=== PATIENT | male | born 1975 | race Caucasian/White ===

== ENCOUNTER 2024-06-16 02:16 | Day surgery (SDC) | payer OTHER, SELFPAY ==
[2024-06-05 15:40] VITALS: BMI 22.2
--- OUTSIDE RECORDS SUMMARY | 2024-06-16 02:19 | XMS_ITS | Clinical Summary ---
Author Organization [facility] Address [address] [place] [address] Care Team Providers Care Neon Light Installer Name Role Phone Unavailable Primary Care Provider Unavailabl e Source Comments [facility],non-owned Affiliates and Associated Physician Practices is amultiple site organization consisting of ambulatory clinics and hospital sitesin [place], [place], [place] and [place]. This disclosure is being madepursuant to the Care Everywhere program and may not contain all information available regarding this patient. Last updated [facility] [employer] [facility] Social History Tobacco Use Types Packs/Day Years Used Date Smoking Tobacco: Never Assessed Sex and Gender Information Value Date Recorded Sex Assigned at Not on file Gender Identity Not on file Sexual Orientation Not on file Plan of Treatment Health Maintenance Due Date Last Done Comments COLOGUARD (AGES 45-75) - COL ON CA SCREENING 1975 COLON MONITORING 1975 COLONOSCOPY - COLON CA SCREENING 1975 CT COLONOGRAPHY - COLON CA SCREENING 1975 Colorectal Cancer Screening 1975 FIT - COLON CA SCREENING 1975 FLEX SIG - COLON CA SCREENING 1975 LIPID TESTING 1975 HIV SCREENING 11/03/1990 HEPATITIS C SCREENING 10/30/1993 DTAP/TDAP/TD VACCINES (1 - Tdap) 11/03/1994 HEPATITIS B VACCINE (1 of 3 - 19+ 3-dose series) 11/03/1994 COVID-19 VACCINE ( - 2023-2 5 season) 2023 INFLUENZA VACCINE (#1) 2023 DEPRESSION SCREENING 03/18/2024 ZOSTER VACCINE (1 of 2) 11/03/2025 HIB VACCINE Aged Out No longer eligi ble based on patient's age to complete this topic HPV VACCINE Aged Out No longer eligi ble based on patient's age to complete this topic MENINGOCOCCAL (Group B) VACC INE SHARED DECISION-MAKING Aged Out No longer eligibl e based on patient's age to complete this topic MENINGOCOCCAL GROUPS A/C/Y/W VACCINE Aged Out No longer eligible b ased on patient's age to complete this topic PNEUMOCOCCAL VACCINE Aged Out No long er eligible based on patient's age to complete this topic
--- OUTSIDE RECORDS SUMMARY | 2024-06-16 02:19 | XMS_ITS | Clinical Summary ---
Author Organization [facility] [address] Address [address] [place] [address] Care Team Providers Care Wiping Cloth Cutter Name Role Phone Jovanni Engle MD Primary Care Provider [phone] Allergies No known active allergies Medications No known medications Active Problems Problem Noted Date Diagnosed Date Annual physical exam 04/11/2020 Encounters Date Type Department Care Team Description 04/28/2024 1:45 PM MILL WORKER Office Visit [facility] Medical [facility] Family Medicine at [address] [place] [phone] Jovanni Engle MD Annual physical exam (Primary Dx); Colon cancer screening; Odynophagia 03/19/2024 Telephone [facility] Family Medicine at [address] [phone] Jovanni Engle MD Additional Services Or Orders from Last 3 Months Immunizations Immunization Administration Dates Next Due Influenza, Quadrivalent, Robyn l Culture-based MDCK, Preservative Free, Antibiotic Free, Intramuscular 01/09/2019 Influenza, Quadrivalent, Spl it, Preservative Free, Intramuscular 01/14/2018 Influenza, Trivalent, IM (MDV) 01/06/2014 Influenza, Unspecified 12/17/2023,2022,01/04/2022,01/04,12/31/2019 Medical History Medical History Date Comments GERD (gastroesophageal reflux disease) Family History Medical History Relation Name Comments Hearing loss Father Hypertension Father Hearing loss Mother Cancer Other Diabetes Other Heart disease Other Stroke Other Relation Name Status Comments Father Mother Other Social History Tobacco Use Types Packs/Day Years Used Date Smoking Tobacco: Never Smokeless Tobacco: Never Tobacco Cessation:Counseling Given: Not Answered Alcohol Use Standard Drinks/Week Comments Never 0 (1 standard drink = 0.6 oz pur e alcohol) AUDIT-C Answer Date Recorded Frequency of Alcohol Consumption Not on file 04/17/2023 Q2: How many drinks containi ng alcohol do you have on a typical day when you are drinking? Patient does not drink Q3: How often do you have si x or more drinks on one occasion? Never 04/17/2023 PHQ-2 Answer Date Recorded PHQ-2 Total Score (If total score is 3 or more points, staff should administer the PHQ-9) 0 04/28/2024 Sex and Gender Information Value Date Recorded Sex Assigned at Not on file Legal Sex Male 8:54 PM MILL WORKER Gender Identity Not on file Sexual Orientation Not on file Obstetrics History Last Filed Vital Signs Vital Sign Reading Time Taken Comments Blood Pressure 136/82 04/28/2024 1:52 PM MILL WORKER Pulse 61 04/28/2024 1:52 PM MILL WORKER Temperature 36.6 C (97.8 F) 04/28/2024 1:52 PM MILL WORKER Respiratory Rate 18 04/17/2023 2:51 PM MILL WORKER Oxygen Saturation 96% 04/28/2024 1:52 PM MILL WORKER Inhaled Oxygen Concentration - - Weight 70.7 kg (155 lb 14.4 oz) 04/28/2024 1:52 PM MILL WORKER Height 177.8 cm (5' 10 ) 04/28/2024 1:52 PM MILL WORKER Body Mass Index 22.37 04/28/2024 1:52 PM MILL WORKER Plan of Treatment Health Maintenance Due Date Last Done Comments Colon Cancer Screening-Colonoscopy 1975 Hepatitis C Screening 1975 DTaP/Tdap/Td Vaccine (1 - Tdap) 11/03/1986 Hepatitis B Screening 11/03/1993 Covid-19 Vaccine ( season) 2023 11/26/2020, 11/05/2020 Depression Screening 04/28/2025 04/28/2024, 05/10/2022, 04/27/2021, Additional history exists Regular Well Visit/Exam 18-64 04/28/2025 04/28/2024, 04/17/2023, 05/10/2022, Additional history exists Influenza Vaccine Completed 12/17/2023, , 01/14/2022, Additional history exists Pneumococcal vaccine <65 Aged Out No longer eligible based on patient's age to complete this topic Procedures Procedure Name Priority Date/Time Associated Diagnosis Comments PSA SCREEN Routine 04/18/2024 11:26 AM MILL WORKER Annual physical exam Encounter for screening prostate specific antigen (PSA) measurement LIPID PANEL Routine 04/18/2024 11:26 AM MILL WORKER Annual physical exam Hyperlipidemia, unspecified hyperlipidemia type CBC WITH AUTO DIFFERENTIAL Routine 04/18/2024 11:26 AM MILL WORKER Annual physical exam COMPREHENSIVE METABOLIC PANEL Routine 04/18/2024 11:26 AM MILL WORKER Annual physical exam from Last 3 Months Results * PSA screen (04/18/2024 11:26 AM MILL WORKER) PSA 0.72 < OR = 4.00 ng/mL [facility] Comment: The total PSA value from this assay system is standardized against the WHO standard. The test result will be approximately 20% lower when compared to the equimolar-standardized total PSA (Art [place]). Comparison of serial PSA results should be interpreted with this fact in mind. This test was performed using the Siemens chemiluminescent method. Values obtained from different assay methods cannot be used interchangeably. PSA levels, regardless of value, should not be interpreted as absolute evidence of the presence or absence of disease. Blood 04/18/2024 11:2 6 AM MILL WORKER 04/18/2024 11:26 AM MILL WORKER us Jovanni Engle MD LAB BLOOD ORDERABLES Final Re sult [facility] [address] [place] [address] * CBC with auto differential (04/18/2024 11:26 AM MILL WORKER) WBC 6.1 3.8 - 10.8 Thousand/u L [facility] RBC, POC 4.77 4.20 - 5.80 Million/uL [facility] Hgb 15.3 13.2 - 17.1 g/dL [facility] Hct 44.6 38.5 - 50.0 % [facility] MCV 93.5 80.0 - 100.0 fL [facility] MCH 32.1 27.0 - 33.0 pg [facility] MCHC 34.3 32.0 - 36.0 g/dL [facility] Comment: For adults, a slight decrease in the calculated MCHC value (in the range of 30 to 32 g/dL) is most likely not clinically significant; however, it should be interpreted with caution in correlation with other red cell parameters and the patient's clinical condition. Rdw 12.2 11.0 - 15.0 % [facility] Platelets 300 140 - 400 Thousand/u L [facility] MPV 10.6 7.5 - 12.5 fL [facility] Neutrophils, abs 2,830 1,500 - 7,800 cells/uL [facility] Lymphocytes, abs 2,538 850 - 3,900 cells/uL [facility] Monocyte abs 512 200 - 950 cells/uL [facility] Eosinophils, abs 171 15 - 500 cells/uL [facility] Basophils, abs 49 0 - 200 cells/uL [facility] Neutrophils 46.4 % [facility] Lymphocyte pct 41.6 % [facility] Monocytes 8.4 % [facility] Eosinophils 2.8 % [facility] Basophils 0.8 % [facility] Blood 04/18/2024 11:2 6 AM MILL WORKER 04/18/2024 11:26 AM MILL WORKER Jovanni Engle MD LAB BLOOD ORDERABLES Final Re sult [facility] [address] [phone] * (ABNORMAL) Lipid panel (04/18/2024 11:26 AM MILL WORKER) Cholesterol 186 <200 mg/dL [facility] HDL 58 > OR = 40 mg/dL [facility] Triglycerides 82 <150 mg/dL [facility] LDL 111(H) mg/dL (calc) [facility] Comment: Reference range: <100 Desirable range <100 mg/dL for primary prevention; <70 mg/dL for patients with CHD or diabetic patients with > or = 2 CHD risk factors. LDL-C is now calculated using the [place] calculation, which is a validated novel method providing better accuracy than the Friedewald equation in the estimation of LDL-C. Jarred SS et al. JESSY. 2013;310(19): 0971-6721 (http://education.ICU Metrix/faq/VFY543) Chol/HDL ratio 3.2 <5.0 (calc) [facility] Non-HDL, (LDL+VLDL) 128 <130 mg/dL (calc) [facility] Comment: For patients with diabetes plus 1 major ASCVD risk factor, treating to a non-HDL-C goal of <100 mg/dL (LDL-C of <70 mg/dL) is considered a therapeutic option. Blood 04/18/2024 11:2 6 AM MILL WORKER 04/18/2024 11:26 AM MILL WORKER Jovanni Engle MD LAB BLOOD ORDERABLES Final Re sult [facility] [address] [place] [address] * Comprehensive metabolic panel (04/18/2024 11:26 AM MILL WORKER) Pathologist [facility] Glucose 91 65 - 99 mg/dL [facility] Comment: Fasting reference interval BUN 22 7 - 25 mg/dL [facility] Creatinine 1.00 0.60 - 1.29 mg/dL [facility] eGFR 93 > OR = 60 mL/min/1.7 3m2 [facility] BUN/creat ratio SEE NOTE: (calc) [facility] Comment: Not Reported: BUN and Creatinine are within reference range. Sodium 138 135 - 146 mmol/L [facility] Potassium, pl 4.1 3.5 - 5.3 mmol/L [facility] Chloride 101 98 - 110 mmol/L [facility] CO2 28 20 - 32 mmol/L [facility] Calcium 9.1 8.6 - 10.3 mg/dL [facility] Protein, sr 7.0 6.1 - 8.1 g/dL [facility] Albumin 4.6 3.6 - 5.1 g/dL [facility] GLOBULIN 2.4 1.9 - 3.7 g/dL (calc) [facility] Alb/glob ratio 1.9 1.0 - 2.5 (calc) [facility] Bilirubin, total 0.8 0.2 - 1.2 mg/dL [facility] Alk phos 77 36 - 130 U/L [facility] AST 19 10 - 40 U/L [facility] ALT (SGPT) 26 9 - 46 U/L [facility] Blood 04/18/2024 11:2 6 AM MILL WORKER 04/18/2024 11:26 AM MILL WORKER us Jovanni Engle MD LAB BLOOD ORDERABLES Final Re sult [facility] [address] [place] [phone] from Last 3 Months Insurance [facility] H[facility]/PPO Address: [place] [address] [facility] H[facility]/PPO Address: [address] PPO [facility] HMO/PPO Address: [place] [id number] [place] [id number] [facility] HMO/PPO Address: [place] [address] Care Teams Wiping Cloth Cutter Relationship Specialty Start Date End Date Jovanni Engle MD PCP - General Family Medicine 12/17/19
--- OUTSIDE RECORDS SUMMARY | 2024-06-16 02:19 | XMS_ITS | Encounter Summary ---
Author Organization [facility] Address [address] [facility] [place] [address] Care Team Providers Care Locksmith Apprentice Name Role Phone Unavailable Primary Care Provider Unavailabl e Encounter Details Date Type Department Care Team (Late st Contact Info) Description 05/17/2021 Lab Requisition [facility] DermPath Lab [address] [place] [phone] Qasim Campos MD [address] [address] Social History Tobacco Use Types Packs/Day Years Used Date Smoking Tobacco: Never Assessed Sex and Gender Information Value Date Recorded Sex Assigned at Not on file Gender Identity Not on file Sexual Orientation Not on file documented as of this encounter Plan of Treatment Not on file documented as of this encounter Procedures Procedure Name Priority Date/Time Associated Diagnosis Comments DERMATOPATHOLOGY Routine 05/16/2021 12:0 0 AM FOOD AIDE documented in this encounter Results * DERMATOPATHOLOGY (05/16/2021 12:00 AM FOOD AIDE) Case Report Dermatopathology Report Case: [id number] Authorizing Provider: Qasim Campos MD Collected: 05/16/2021 12:00 AM Ordering Location: [facility] DermPath Lab Received: 05/17/2021 04:25 PM Pathologist: Althea Pickens MD Specimen: Skin, left upper abdomen 2 1:37 PM FOOD AIDE DERMATOPATHOLOGY LABORATORY Final Diagnosis Specimen A. 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 Path#[id number] 1:37 PM [facility] DERMATOPATHOLOGY LABORATORY Gross Description Specimen A: Received is one formalin filled container labeled with the patient's name and designated left upper abdomen. The specimen consists of a shave biopsy measuring 5x4x2 mm. Jar 0. 1:37 PM [facility] DERMATOPATHOLOGY LABORATORY Microscopic Description Specimen A. SKIN, left upper abdomen: Sections show a proliferation of blood vessels in lobules lined by uniform endothelial cells and by fibrous septa. 1:37 PM [facility] DERMATOPATHOLOGY LABORATORY Disclaimer An external and internal positive and negative controls are appropriate for the histochemical, immunohistochemical and immunofluorescence stain(s) in this case (if any), except where stated explicitly. The performance characteristics of the stain(s) cited in this report were developed and its performance characteristic determined by the Dermatopathology Laboratory at [facility], directed by Dr. Ameya Naik. These tests need not be, and therefore are not, approved by the [place] Food and Drug Administration. The tests are used for clinical purposes. Billing Codes Specimen Charges Stain Charges 67111 1 2 1:37 PM [facility] DERMATOPATHOLOGY LABORATORY Embedded Images 1:37 PM [facility] DERMATOPATHOLOGY LABORATORY Pathology/Cytolog y TISSUE SPECIMEN FROM SKIN / Unknown 05/16/2021 05/17/2021 4:25 PM FOOD AIDE Qasim Campos MD LAB - PATHOLOGY/CYTO LOGY ORDERABLES DERMATOPATHOLOGY LABORATORY [facility] - Department of Dermatology [address], [address] [phone] documented in this encounter Visit Diagnoses Not on filedocumented in this encounter
--- OUTSIDE RECORDS SUMMARY | 2024-06-16 02:20 | XMS_ITS | Encounter Summary ---
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 Historical Provider Final Res ult documented in this encounter Visit Diagnoses Not on filedocumented in this encounter Care Teams Bonderizer Operator Relationship Specialty Start Date End Date Jovanni Engle MD PCP - General Family Medicine 12/17/19 documented as of this encounter
--- OUTSIDE RECORDS SUMMARY | 2024-06-16 02:20 | XMS_ITS | Referral Summary ---
Author Organization [facility] [address] Address [address] [place] [address] Care Team Providers Care Superintendent Stations Name Role Phone Jovanni Engle MD Primary Care Provider [phone] Encounters Date Type Department Care Team Description 04/28/2024 1:45 PM LIBRARY CATALOGING TECHNICIAN Office Visit [facility] Family Medicine at [address] [place] [phone] Jovanni Engle MD Annual physical exam (Primary Dx); Colon cancer screening; Odynophagia 03/19/2024 Telephone [facility] Family Medicine at [address] [place] [phone] Jovanni Engle MD Additional Services Or Orders from Last 3 Months Allergies No known active allergies Medications No known medications Active Problems Problem Noted Date Diagnosed Date Annual physical exam 04/11/2020 Immunizations Immunization Administration Dates Next Due Influenza, Quadrivalent, Robyn l Culture-based MDCK, Preservative Free, Antibiotic Free, Intramuscular 01/09/2019 Influenza, Quadrivalent, Spl it, Preservative Free, Intramuscular 01/14/2018 Influenza, Trivalent, IM (MDV) 01/06/2014 Influenza, Unspecified 12/17/2023,2022,01/04/2022,01/04,12/31/2019 Social History Tobacco Use Types Packs/Day Years [...] on file Legal Sex Male 8:54 PM LIBRARY CATALOGING TECHNICIAN Gender Identity Not on file Sexual Orientation Not on file Last Filed Vital Signs Vital Sign Reading Time Taken Comments Blood Pressure 136/82 04/28/2024 1:52 PM LIBRARY CATALOGING TECHNICIAN Pulse 61 04/28/2024 1:52 PM LIBRARY CATALOGING TECHNICIAN Temperature 36.6 C (97.8 F) 04/28/2024 1:52 PM LIBRARY CATALOGING TECHNICIAN Respiratory Rate 18 04/17/2023 2:51 PM LIBRARY CATALOGING TECHNICIAN Oxygen Saturation 96% 04/28/2024 1:52 PM LIBRARY CATALOGING TECHNICIAN Inhaled Oxygen Concentration - - Weight 70.7 kg (155 lb 14.4 oz) 04/28/2024 1:52 PM LIBRARY CATALOGING TECHNICIAN Height 177.8 cm (5' 10 ) 04/28/2024 1:52 PM LIBRARY CATALOGING TECHNICIAN Body Mass Index 22.37 04/28/2024 1:52 PM LIBRARY CATALOGING TECHNICIAN Plan of Treatment Not on file Procedures Procedure Name Priority Date/Time Associated Diagnosis Comments PSA SCREEN Routine 04/18/2024 11:26 AM LIBRARY CATALOGING TECHNICIAN Annual physical exam Encounter for screening prostate specific antigen (PSA) measurement LIPID PANEL Routine 04/18/2024 11:26 AM LIBRARY CATALOGING TECHNICIAN Annual physical exam Hyperlipidemia, unspecified hyperlipidemia type CBC WITH AUTO DIFFERENTIAL Routine 04/18/2024 11:26 AM LIBRARY CATALOGING TECHNICIAN Annual physical exam COMPREHENSIVE METABOLIC PANEL Routine 04/18/2024 11:26 AM LIBRARY CATALOGING TECHNICIAN Annual physical exam from Last 3 Months Results * PSA screen (04/18/2024 11:26 AM LIBRARY CATALOGING TECHNICIAN) PSA 0.72 < OR = 4.00 ng/mL [facility] Comment: The total PSA value from this assay system is standardized against the WHO standard. The test result will be approximately 20% lower when compared to the equimolar-standardized total PSA (Art [place]). Comparison of serial PSA results should be interpreted with this fact in mind. This test was performed using the Siemens chemiluminescent method. Values obtained from different assay methods cannot be used interchangeably. PSA levels, regardless of value, should not be interpreted as absolute evidence of the presence or absence of disease. Blood 04/18/2024 11:2 6 AM LIBRARY CATALOGING TECHNICIAN 04/18/2024 11:26 AM LIBRARY CATALOGING TECHNICIAN us Jovanni Engle MD LAB BLOOD ORDERABLES Final Re sult [facility] [address] [place] [address] * CBC with auto differential (04/18/2024 11:26 AM LIBRARY CATALOGING TECHNICIAN) Pathologist [facility] WBC 6.1 3.8 - 10.8 Thousand/u L [facility] Blood 04/18/2024 11:2 6 AM LIBRARY CATALOGING TECHNICIAN 04/18/2024 11:26 AM LIBRARY CATALOGING TECHNICIAN us Jovanni Engle MD LAB BLOOD ORDERABLES Final Re sult [facility] [address] [place] [address] * (ABNORMAL) Lipid panel (04/18/2024 11:26 AM LIBRARY CATALOGING TECHNICIAN) Cholesterol 186 <200 mg/dL [facility] [...] factors. LDL-C is now calculated using the Jarred-Etienne calculation, which is a validated novel method providing better accuracy than the Friedewald equation in the estimation of LDL-C. Jarred SS et al. JESSY. 2013;310(19): 3969-3413 (http://education.[employer]faq/BGQ700) Chol/HDL ratio 3.2 <5.0 (calc) [facility] Non-HDL, (LDL+VLDL) 128 <130 mg/dL (calc) [facility] Comment: For patients with diabetes plus 1 major ASCVD risk factor, treating to a non-HDL-C goal of <100 mg/dL (LDL-C of <70 mg/dL) is considered a therapeutic option. Blood 04/18/2024 11:2 6 AM LIBRARY CATALOGING TECHNICIAN 04/18/2024 11:26 AM LIBRARY CATALOGING TECHNICIAN Jovanni Engle MD LAB BLOOD ORDERABLES Final Re sult [facility] [address] [facility] [place] [phone] * Comprehensive metabolic panel (04/18/2024 11:26 AM LIBRARY CATALOGING TECHNICIAN) Glucose 91 65 - 99 mg/dL [facility] Comment: Fasting reference interval BUN 22 7 - 25 mg/dL [facility] Creatinine 1.00 0.60 - 1.29 mg/dL [facility] eGFR 93 > OR = 60 mL/min/1.7 3m2 [facility] BUN/creat ratio SEE NOTE: 6 - 22 (calc) [facility] Comment: Not Reported: [...] [facility] Blood 04/18/2024 11:2 6 AM LIBRARY CATALOGING TECHNICIAN 04/18/2024 11:26 AM LIBRARY CATALOGING TECHNICIAN us Jovanni Engle MD LAB BLOOD ORDERABLES Final Re sult [facility] [address] [place] [address] from Last 3 Months Insurance [address] Member Subscriber Plan / Payer (Ef fective 2022-Present) Name:Kalyan Lara Relation to Subscriber:Self Name:Kalyan Lara Payer ID:[id number] (NAIC) Type:[facility] HMO/PPO [address] [facility] Care Teams Superintendent Stations Relationship Specialty Start Date End Date Jovanni Engle MD PCP - General Family Medicine 12/17/19
[2024-06-16 08:14] VITALS: BP 127/93; PULSE 80; RESP 18; TEMP 36.2; O2SAT 99; BMI 20.9
[2024-06-16] MEDS: LACTATED RINGERS 1,000 ML 150 ML IV CONT (08:19)
--- NOTE | 2024-06-16 08:21 | WPDANESEPPF ---
Anes - Initial Pre Proc Eval Procedure: Operation Date: 06/16/24 09:30 Proposed Procedures p Esophagogastroduodenoscopy & Colonoscopy - Jun Bhardwaj MD Date/Time: 06/16/24 08:21 Surgeon: Jun Bhardwaj MD Pre Op Diagnosis: Dysphagia, unspecified, screening Patient Data Age: 48 Gender: M Height: 1.78 m Weight: 66.3 kg Last Vital Signs Temp 97.1 F L 06/16/24 08:14 Pulse 80 06/16/24 08:14 Resp 18 06/16/24 08:14 BP 127/93 H 06/16/24 08:14 Pulse Ox 99 06/16/24 08:14 O2 Del Method Room Air 06/16/24 08:14 Allergies Allergy/AdvReac Type Severity Reaction Status Date / Time No Known Allergies Allergy Verified 06/16/24 08:13 Home Medications ?Medication ?Instructions ?Recorded ?Confirmed ?Type No Home Medications 06/05/24 06/05/24 History Patient hx anesthesia problems: none Family hx anesthesia problems: none Results Review: All pre-operative results and documents have been reviewed as part of the pre-operative evaluation. [facility] Social History Social History Smoking status: Never smoker Substance use type: does not use Living arrangements: with family Additional living arrangements comments: with sp Anes - Eval Final PreProcedure Day of Procedure 06/16/24 08:21 Patient weight: normal Lungs: normal air movement Airway: Mallampati scale class II Neurological: alert and oriented Last oral intake: >/= 8 hours ASA classification: I Emergent: no Anesthetic plan: proceed Anesthesia type and monitoring: general GIVS and standard monitoring Results Review: All pre-operative results and documents have been reviewed as part of the pre-operative evaluation. Healthy, hx of esophageal stricture. Informed Consent: The patient's anesthetic plan and its attendant risks and benefits were discussed with the patient/family/POA. Questions were solicited and answers provided to the satisfaction of the patient/family/POA.
--- NOTE | 2024-06-16 08:43 | PM.HPGS ---
History of Present Illness History of Present Illness Consent: Risks, benefits, and alternatives have been discussed and questions answered. Patient agrees to proceed with procedure. Chief complaint: Dysphagia, unspecified, screening Narrative: Kalyan Lara is a 48 year old male with dysphagia, had EGD with dilation about 7 years ago, also here for first screening colonoscopy Review of Systems Review of Systems: All systems reviewed & are unremarkable except as noted in HPI and below PMFSH Past Medical History Medical History (Updated 06/16/24 @ 08:44 by Jun Bhardwaj MD) Colon cancer screening Dysphagia Social History Social History Smoking status: Never smoker Substance use type: does not use Living arrangements: with family Additional living arrangements comments: with sp Meds Home Medications and Allergies Home Medications ?Medication ?Instructions ?Recorded ?Confirmed ?Type No Home Medications 06/05/24 06/05/24 History Allergies Allergy/AdvReac Type Severity Reaction Status Date / Time No Known Allergies Allergy Verified 06/16/24 08:13 Vital Signs Vital Signs - 24 hr 06/16/24 08:14 Temperature 97.1 F L Pulse Rate 80 Respiratory Rate 18 Blood Pressure 127/93 H Pulse Oximetry 99 Oxygen Delivery Room Air Exam Const: General: comfortable and no acute distress HENMT: Face/Nose/Sinus: Normal nares present Eyes: General: appearance normal, both eyes and all related structures Neck: Neck: no JVD Resp: Auscultation: clear to auscultation bilaterally Cardio: Rate: regular rate Rhythm: regular rhythm GI: Inspection: non-distended GI Palp: Yes Soft to palpation Skin: General skin exam: normal color Neuro: General: gait normal Speech: normal speech Extrem: General: normal to inspection Psych: Mental Status: mental status grossly normal Assessment and Plan Assessment and plan (1) Dysphagia: Code(s): R13.10 - Dysphagia, unspecified Status: Acute Assessment and Plan: egd (2) Colon cancer screening: Code(s): Z12.11 - Encounter for screening for malignant neoplasm of colon Status: Acute Assessment and Plan: colonoscopy
[2024-06-16 09:07] VITALS: BP 98/63; PULSE 63; RESP 17; O2SAT 98
--- NOTE | 2024-06-16 09:07 | SUR.OPER ---
EGD START 848, END 853 COLONOSCOPY START 857, END 904
[2024-06-16 09:17] VITALS: BP 111/76; PULSE 68; RESP 17; O2SAT 100
[2024-06-16 09:27] VITALS: BP 126/90; PULSE 72; RESP 22; O2SAT 100
[2024-06-16 09:37] VITALS: BP 121/87; PULSE 60; RESP 14; O2SAT 100
== END 2024-06-16 09:13 | disposition home or self-care (01) ==
PROVIDERS: PCP Family Medicine; Referring Provider Family Medicine; Visit Provider Internal Medicine Gastroenterology
PROC: 0DJ08ZZ Inspection of Upper Intestinal Tract, Via Natural or Artificial Opening Endoscopic (ICD-10-PCS; CPT 45378; principal; 2024-06-16 09:30)
DX: Z12.11 Encounter for screening for malignant neoplasm of colon (principal); K64.8 Other hemorrhoids; K22.2 Esophageal obstruction; K44.9 Diaphragmatic hernia without obstruction or gangrene; K31.89 Other diseases of stomach and duodenum; Z87.19 Personal history of other diseases of the digestive system
CPT/HCPCS: 43249; 43239; 45378; 88305; C1726; J2003; J2704; J7120